=== PATIENT | female | born 1995 ===

== ENCOUNTER 2018-04-16 16:12 | Emergency (ER) | payer SELFPAY ==
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
--- NOTE | 2018-04-16 17:25 | RAD ---
THREE VIEWS LEFT WRIST 04/16/18 COMPARISON: None. HISTORY: Left wrist pain. FINDINGS: Three views of the left wrist shows no evidence of acute fracture or dislocation. No focal soft tissu e swelling is seen. No degenerative changes are seen. IMPRESSION: Unremarkable exam. POS: [facility]
== END 2018-04-16 17:22 | disposition home or self-care (01) ==
LOC: ERS 16:12
DX: S60.212A Contusion of left wrist, initial encounter (principal); S50.02XA Contusion of left elbow, initial encounter; V89.2XXA Person injured in unspecified motor-vehicle accident, traffic, initial encounter